=== PATIENT | male | born 1985 | race Caucasian/White ===

== ENCOUNTER → 2018-03-04 | Outpatient (CLI) | payer OTHER ==
--- NOTE | 2018-03-04 16:02 | MR ---
EXAMINATION TYPE: MR knee RT wo con DATE OF EXAM: 03/04/2018 COMPARISON: None HISTORY: right knee pain TECHNIQUE: Multiplanar, multisequence images of the knee is performed without IV contrast. FINDINGS: MEDIAL MENISCUS: Anterior and posterior horns are intact without tear. LATERAL MENISCUS: Anterior and posterior horns are intact without tear. CRUCIATE LIGAMENTS: The anterior and posterior cruciate ligaments are intact and unremarkable. COLLATERAL LIGAMENTS: The medial collateral ligament and lateral collateral ligament complex are inta ct and unremarkable. EXTENSOR MECHANISM: Visualized quadriceps and patellar tendons are intact. EFFUSION: No significant suprapatellar joint effusion. POPLITEAL CYST: No popliteal/deleon cyst. TRICOMPARTMENT SPACES: Intact CARTILAGE: Intact BONE MARROW SIGNAL: No focal abnormal marrow signal is appreciated. OTHER: No additional significant abnormality is appreciated. IMPRESSION: No significant abnormality appreciated to account for the patient's symptoms. Medial subc utaneous varix noted.
== END | disposition home or self-care (01) ==
LOC: RADMRIMAIN 13:08
PROVIDERS: ATTEND Orthopaedic Surgery
DX: I86.8 Varicose veins of other specified sites (principal)

== ENCOUNTER → 2018-07-14 | Outpatient (CLI) | payer OTHER ==
--- NOTE | 2018-07-14 14:28 | US ---
EXAMINATION TYPE: US venous doppler duplex LE RT DATE OF EXAM: 07/14/2018 1:56 PM COMPARISON: NONE CLINICAL HISTORY: M79.661 right leg pain. SIDE PERFORMED: Right TECHNIQUE: The lower extremity deep venous system is examined utilizing real time linear array sonog moy with graded compression, doppler sonography and color-flow sonography. VESSELS IMAGED: External Iliac Vein (EIV) Common Femoral Vein Deep Femoral Vein Greater Saphenous Vein * Femoral Vein Popliteal Vein Small Saphenous Vein * Proximal Calf Veins (* superficial vessels) Scanned patient's area of pain, right medial knee over lump. There is thrombosed varicosities at area of pain and over lump. Right Leg: Negative for DVT IMPRESSION: No evidence for DVT at this time. Thrombosed varicosities as discussed above.
== END | disposition home or self-care (01) ==
LOC: RADUSWWP 13:35
PROVIDERS: ATTEND Family Medicine
DX: I83.891 Varicose veins of right lower extremity with other complications (principal)

== ENCOUNTER → 2018-10-26 | Outpatient (CLI) | payer OTHER ==
--- NOTE | 2018-10-26 18:34 | CONS ---
CONSULTATION DATE OF SERVICE: 10/26/2018 This patient is a 33-year-old gentleman who has been evaluated in the sleep center for possible obstructive sleep apnea-hypopnea syndrome. HISTORY OF PRESENT ILLNESS/SLEEP-WAKE EVALUATION: Patient's usual sleep schedule is from 8:30 or 9 p.m. to 5 a.m. on working days and from 9 or 10 p.m. until 6 or 7 a.m. on weekends. He does have problems with falling asleep. He has a TV set in the bedroom. He sleeps in different positions with his . According to her, he has loud snoring, episodes of stopped breathing during sleep. He wakes up gasping for air, episodes of palpitations in the past up to 3 times per night with up to 2 episodes of nocturia. No history of hypnagogic hallucinations, sleep paralysis or cataplexy. In the morning, the patient wakes up tired, worries about his sleep, has problems with concentration, irritability and anxiety. [place] Sleepiness Scale is significantly increased at 15. Usually the patient does not take any naps. He drinks about 2 cups of coffee during the day. PAST MEDICAL HISTORY: 1. Episodes of palpitations. 2. Possible nasal trauma. PAST SURGICAL HISTORY: None. MEDICATIONS: None. SOCIAL HISTORY: Negative for smoking, alcohol consumption; quit 1 year ago. FAMILY HISTORY: Basically parents are healthy. PHYSICAL EXAMINATION: GENERAL: A pleasant gentleman without distress. VITAL SIGNS: BP 129/70, HR 86, RR 16, height 5 feet 9 inches, weight 186, BMI 27.4, temperature 98.9, oxygen saturation at room air 97%. HEENT: PERRLA, EOMI. Evaluation of oropharynx showed tongue protrudes midline. Moderately low position of soft palate. Mallampati II to III. Retrognathia 2 to 3 mm. Restriction of nasal breathing. NECK: Supple. No JVD. Thyroid is not palpable. Circumference of 15 inches. LUNGS: Clear to percussion and to auscultation. Good air exchange. No wheezing or rhonchi. HEART: S1, S2 regular. No murmurs, gallops or rubs. ABDOMEN: Soft and nontender. Bowel sounds are present. No organomegaly. EXTREMITIES: No clubbing or cyanosis. IMPROVEMENT ADVISOR: Awake, alert, and oriented X3. Cranial nerves 2 to 7 intact. There is no fasciculation or atrophy. noted. No focal deficits observed. IMPRESSION: 1. Loud snoring, witnessed episodes of stopped breathing during sleep, multiple awakenings from sleep, restriction of nasal breathing, retrognathia, moderately low soft palate, sleepiness; obstructive sleep apnea-hypopnea syndrome. 2. Significant sleepiness. [place] Sleepiness Scale increased at 15. Differential diagnosis would include hypersomnia if sleep sleep is negative for JET. 3. History of palpitations. 4. Restriction of nasal breathing; possibly nasal septum deviation. PLAN: 1. Polysomnography for evaluation of patient's breathing during sleep. 2. CPAP/BiPAP titration if sleep study confirms obstructive sleep apnea-hypopnea syndrome. 3. Preferable position during sleep on the side. 4. No driving if patient feels any sleepiness. 5. I will see patient for follow up visit to explain results of testing and following plan. 6. Multiple sleep latency test if sleep study is negative for JET. Thank you very much for referring this patient for consultation. Sincerely, Jason Ramos MD, PhD, FAASM Diplomat of [employer] [employer] [facility] [place] MMODL / IJN: [id number] /
== END | disposition home or self-care (01) ==
LOC: SLEEP 15:56
PROVIDERS: ATTEND Internal Medicine
DX: G47.33 Obstructive sleep apnea (adult) (pediatric) (principal); M26.19 Other specified anomalies of jaw-cranial base relationship; J34.89 Other specified disorders of nose and nasal sinuses; R35.1 Nocturia; Z86.79 Personal history of other diseases of the circulatory system
CPT/HCPCS: 99211